=== PATIENT | female | born 1980 | race Caucasian/White ===

== ENCOUNTER 2019-04-16 07:40 | Emergency (ER) | payer BC ==
[2019-04-16 08:21] LABS: #Basophils 0.1 thou/uL (0.0-0.2); #Eosinphils 0.5 thou/uL (0.0-0.7); #Lymphocytes 1.2 thou/uL (1.20-3.40); #Monocytes 0.7 thou/uL (0.11-0.59); #Neutrophils 4.6 thou/uL (1.40-6.50); %Basophils 1.2 % (0.0-1.0); %Eosinophils 7.3 % (0.0-10.0); %Lymphocytes 17.2 % (21.0-51.0); %Monocytes 9.4 % (0.0-10.0); %Neutrophils 64.9 % (42.0-75.0); Hemoglobin 11.9 g/dL (12.0-16.0); Mean Corpuscular HGB CONC 33.4 g/dL (32.0-36.0); Mean Corpuscular Hemoglobin 28.5 pg (27.0-31.0); Mean Corpuscular Volume 85.3 fL (78.0-98.0); Mean Platelet Volume 7.9 fL (7.4-10.4); Platelet Count 240 thou/uL (130-400); Red Blood Cell (RBC) Count 4.18 mill/uL (4.20-5.40); White Blood Cell (WBC) Count 7.1 thou/uL (4.8-10.8)
[2019-04-16] MEDS ORDERED: Ibuprofen 200 MG TAB ONE (08:44)
[2019-04-16 09:02] LABS: BHCG - Serum Negative (NEGATIVE); Pregs Control Background? CLEAR/WHITE (CLR/WHITE); Pregs Control Bar Appear? YES (CONTROL BAR)
--- NOTE | 2019-04-16 09:06 | ULT ---
PELVIC ULTRASOUND WITH BARRIOS SCALE AND DOPPLER COLOR FLOW: INDICATION: Emergency exam performed for pelvic pain. FINDINGS: Transabdominal sonographic imaging of the pelvis is performed which reveals no evidence of focal uter ine lesion. The endometrial stripe is normal measuring 4 mm. Doppler evaluation reveals flow to eac h ovary, with waveforms elicited. There are bilateral ovarian cysts demonstrated, with dominant cyst of the left ovary measuring between 4 and 5 cm in length. Minimal free pelvic fluid is seen. IMPRESSION: Multiple ovarian cysts, with dominant left ovarian cyst measuring between 4 and 5 cm. Recommend 6-we ek followup pelvic ultrasound to confirm expected physiologic resolution. POS: [facility]
[2019-04-16] MEDS ORDERED: HYDROcodone/Acetaminophen 5/325 mg Tablet ONE (09:25)
[2019-04-16] MEDS ORDERED: Ondansetron ODT 4 MG TAB ONE (09:25)
[2019-04-16 09:47] LABS: Bilirubin Negative (Negative); Blood, Urine Negative (Negative); Clarity CLEAR (Clear); Glucose, Urine (Dipstick) Negative (Negative); Leukocyte Negative (Negative); Nitrite Negative (Negative); Protein, Urine (Dipstick) Negative (Neg-Trace); Specific Gravity, Urine 1.026 (1.002-1.036); Urobilinogen 0.2 mg/dL (0.2-1.0); pH, Urine 6.5 (5.0-9.0)
== END 2019-04-16 10:17 | disposition home or self-care (01) ==
LOC: ERS 07:40
DX: N83.202 Unspecified ovarian cyst, left side (principal); F31.9 Bipolar disorder, unspecified
CPT/HCPCS: 36415; 51701; 76856; 81003; 84703; 85025; 93976; A4353; Q0162

== ENCOUNTER 2020-01-03 15:13 | Emergency (ER) | payer BC, SELFPAY ==
--- NOTE | 2020-01-03 16:04 | RAD ---
RIGHT ANKLE THREE VIEWS: 01/03/20 HISTORY: Ankle pain starting last night. Postoperative changes of the ankle are noted. Plate and screws of the distal fibula and a retention d evice across the tibiofibular joint are noted. 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 Th ere is no joint effusion or fracture. IMPRESSION: Postop changes. No acute findings. POS: [facility]
== END 2020-01-03 16:24 | disposition home or self-care (01) ==
LOC: ERS 15:13
DX: S99.911A Unspecified injury of right ankle, initial encounter (principal); F31.9 Bipolar disorder, unspecified; F42.9 Obsessive-compulsive disorder, unspecified; F17.210 Nicotine dependence, cigarettes, uncomplicated

== ENCOUNTER 2022-11-12 02:55 | Emergency (ER) | payer BC ==
[2022-11-12] MEDS ORDERED: Acetaminophen 500 MG TAB ONE (02:59)
[2022-11-12] MEDS ORDERED: Ketorolac Tromethamine 30 MG/ML VIAL ONE (04:24)
[2022-11-12] MEDS ORDERED: Metoclopramide HCl 10 MG/2 ML VIAL ONE (04:24)
[2022-11-12] MEDS ORDERED: diphenhydrAMINE 50 MG/ML VIAL ONE (04:24)
[2022-11-12 06:59] LABS: SARS-CoV-2 NAA Rapid Test DETECTED (NotDetected)
== END 2022-11-12 06:45 | disposition home or self-care (01) ==
LOC: ERS 02:55
DX: G43.909 Migraine, unspecified, not intractable, without status migrainosus (principal); R50.9 Fever, unspecified; F17.210 Nicotine dependence, cigarettes, uncomplicated; Z20.822 Contact with and (suspected) exposure to COVID-19
CPT/HCPCS: 96374; 96375; J1200; J1885; J2765

== ENCOUNTER 2022-11-12 11:23 | Emergency (ER) | payer BC, SELFPAY | END 2022-11-12 12:38 | disposition home or self-care (01) | LOC: ERS 11:23 | DX: U07.1 COVID-19 (principal); F17.210 Nicotine dependence, cigarettes, uncomplicated | CPT/HCPCS: 99283 ==